=== PATIENT | female | born 1995 | race Hispanic/Latino ===

== ENCOUNTER 2023-10-23 05:35 | Observation (INO) | payer OTHER ==
[2023-10-23] VITALS (26 sets, daily range): BP systolic 108–148; BP diastolic 46–88; PULSE 55–92; RESP 13–18; O2SAT 100
[~2023-10-23] VITALS: Ht 162.6 cm; Wt 57.2 kg
[2023-10-23 06:07] LABS: APPEARANCE,URINE CLOUDY (CLEAR); BILIRUBIN,URINE NEGATIVE (NEGATIVE); COLOR,URINE YELLOW (YELLOW); GLUCOSE, URINE (UA) NEGATIVE (NEGATIVE); KETONES,URINE 10 mg/dL (NEGATIVE); LEUKOCYTE ESTERASE ,URINE 75 Leu/uL (NEGATIVE); NITRATE,URINE NEGATIVE (NEGATIVE); OCCULT BLOOD,URINE MODERATE (NEGATIVE); PROTEIN,URINE 10 mg/dL (NEGATIVE); UROBILINOGEN,URINE 0.2 mg/dL (0.2-1.0)
[2023-10-23 06:09] LABS: ADD UA MICROSCOPIC YES
[2023-10-23 06:14] LABS: BACTERIA,URINE RARE /HPF (None Seen); MUCUS,URINE RARE LPF (None Seen); SQUAMOUS EPITHELIAL CELL,UR MANY /HPF (0-2)
[2023-10-23] MEDS: ONDANSETRON 4MG INJ IVP ONE (06:18)
[2023-10-23] MEDS: 0.9%NACL 1000ML 1,000 ML IV ONE (06:18)
[2023-10-23] MEDS: MORPHINE 4 MG SYG IVP ONE ×3 (06:18→07:12)
[2023-10-23 06:28] LABS: BASOPHILS # (AUTO) 0.06 K/uL (0.00-0.20); BASOPHILS % (AUTO) 0.5 % (0.0-5.0); EOSINOPHILS # (AUTO) 0.13 K/uL (0.00-0.70); EOSINOPHILS % (AUTO) 1.1 % (0.0-8.0); HEMATOCRIT 40.9 % (36-48); IMMATURE GRANULOCYTE ABSOLUTE 0.06 K/uL (0-1); LYMPHOCYTES # (AUTO) 3.4 K/uL (1.0-4.8); LYMPHOCYTES % (AUTO) 28.9 % (21.0-51.0); MEAN CORPUSCULAR HEMOGLOBIN 29.3 pg (27.0-33.0); MEAN CORPUSCULAR HGB CONC 34.5 g/dL (32.0-36.0); MONOCYTES # (AUTO) 0.6 K/uL (0.1-1.0); MONOCYTES % (AUTO) 5.2 % (3.0-13.0); NEUTROPHILS # (AUTO) 7.5 K/uL (1.8-7.7); NEUTROPHILS % (AUTO) 63.8 % (40.0-77.0); PLATELET COUNT (AUTO) 262 K/uL (130-400); RED BLOOD CELL COUNT(AUTO) 4.81 MIL/uL (4.00-5.50); RED CELL DISTRIBUTION WIDTH 12.7 % (11.0-15.5); WHITE BLOOD COUNT (AUTO) 11.8 K/uL (4.8-10.8)
[2023-10-23 06:46] LABS: ALBUMIN 3.4 g/dL (3.5-5.0); BILIRUBIN,TOTAL 0.6 mg/dL (0.2-1.0); CREATININE 0.7 mg/dL (0.5-1.5); POTASSIUM 3.7 mmol/L (3.5-5.1); TOTAL PROTEIN, SERUM 6.8 g/dL (6.0-8.3)
[2023-10-23] MEDS ORDERED: BUPIVACAINE/PF 0.25% 30ML VIAL IJ ONE (10:02)
[2023-10-23] MEDS: LACTATED RINGERS 1000ML 1,000 ML IV ONE (10:11)
[2023-10-23] MEDS: CEFAZOLIN SODIUM 2 GM VIAL ONE (11:13)
[2023-10-23] MEDS ORDERED: MIDAZOLAM HCL 1 MG/ML 2ML VIAL ONE (11:15)
[2023-10-23] MEDS ORDERED: LIDOCAINE PF 100MG/5ML (2%) SYRINGE 5ML ONE (11:22)
[2023-10-23] MEDS ORDERED: SUCCINYLCHOLINE CHLORIDE 20 MG/ML 10 ML VIAL ONE (11:22)
[2023-10-23] MEDS ORDERED: PROPOFOL 10 MG/ML 20ML VIAL IV ONE (11:22)
[2023-10-23] MEDS ORDERED: ROCURONIUM BROMIDE 10MG/1ML 5ML VL ONE (11:23)
[2023-10-23] MEDS ORDERED: FENTANYL CITRATE PF 50 MCG/1 ML 2ML VIAL ONE (11:23)
[2023-10-23] MEDS: CEFAZOLIN SODIUM 2 GM VIAL IVPB ONE (11:40)
[2023-10-23] MEDS: BUPIVACAINE/PF 0.25% 30ML VIAL IJ ONE (12:05)
[2023-10-23] MEDS ORDERED: GLYCOPYRROLATE 0.2 MG/ML 5 ML VIAL ONE (12:38)
[2023-10-23] MEDS ORDERED: NEOSTIGMINE METHYLSULFATE 1MG/ML IV ONE (12:38)
[2023-10-23] MEDS ORDERED: 0.9%NACL 10ML VIAL IVP PRN (13:00)
[2023-10-23] MEDS ORDERED: DEXTROSE 5 %-0.45 % NACL 1,000 ML IV PRN (13:00)
[2023-10-23] MEDS: ONDANSETRON 4MG INJ ONE (13:17)
[2023-10-23] MEDS: MEPERIDINE-PF 25 MG/ML SYG ONE ×2 (13:18→13:23)
[2023-10-23] MEDS: PROMETHAZINE HCL 25 MG/ML 1ML AMPULE IM PRN (14:08)
[2023-10-23] MEDS: MEPERIDINE-PF 75 MG/ML SYG IM PRN (14:09)
[2023-10-23] MEDS: CALDOLOR 800MG+NS 250ML 250 ML IV SCH (20:52)
[2023-10-24] VITALS (7 sets, daily range): BP systolic 110–122; BP diastolic 57–72; PULSE 71–94; RESP 16–20; O2SAT 97
[2023-10-24 06:56] LABS: HEMATOCRIT 38.4 % (36-48); MEAN CORPUSCULAR HEMOGLOBIN 29.1 pg (27.0-33.0); MEAN CORPUSCULAR HGB CONC 32.6 g/dL (32.0-36.0); MEAN CORPUSCULAR VOLUME 89.3 fL (79-99); RED BLOOD CELL COUNT(AUTO) 4.3 MIL/uL (4.00-5.50); RED CELL DISTRIBUTION WIDTH 12.9 % (11.0-15.5); WHITE BLOOD COUNT (AUTO) 13.7 K/uL (4.8-10.8)
[2023-10-24] MEDS ORDERED: ACETAMINOPHEN WITH CODEINE 1 TAB TAB PO PRN (12:00)
[2023-10-24] MEDS: IBUPROFEN 800 MG TAB PO SCH (12:18)
[2023-10-24] MEDS: HYDROCODONE/ACETAMINOPHEN 5/325 MG TAB PO PRN (12:18)
[2023-10-24] MEDS: SIMETHICONE 80 MG TAB.CHEW PO PRN (13:27)
[2023-10-24] MEDS ORDERED: CALDOLOR 800MG+NS 250ML 250 ML IV ONE (13:30)
[2023-10-24] MEDS: MEPERIDINE-PF 50 MG/ML SYG IVP ONE (14:08)
[2023-10-24] MEDS: PROMETHAZINE HCL 25 MG/ML 1ML AMPULE IM ONE (14:14)
[2023-10-24] MEDS: CALDOLOR 800MG+NS 250ML 250 ML IV ONE (22:05)
[2023-10-25 03:40] VITALS: BP 121/67; PULSE 78; RESP 18
[2023-10-25 08:00] VITALS: BP 115/57; PULSE 85; RESP 16
[2023-10-25] MEDS: BISACODYL 10 MG SUPP.RECT RC PRN (08:43)
[2023-10-25 11:29] VITALS: BP 116/63; PULSE 86; RESP 20
[2023-10-25] MEDS ORDERED: DOCU-116 PO (13:07)
[2023-10-25] MEDS ORDERED: IBUP-2077 PO (13:08)
[2023-10-25] MEDS ORDERED: ACET-2079 PO (13:09)
== END 2023-10-25 14:30 | disposition home or self-care (01) ==
LOC: EDH 05:35 → WSH 09:30
PROVIDERS: ADMIT Obstetrics & Gynecology; ATTEND Obstetrics & Gynecology
DX: N83.292 Other ovarian cyst, left side (principal); N83.512 Torsion of left ovary and ovarian pedicle; R10.32 Left lower quadrant pain; R10.2 Pelvic and perineal pain
CPT/HCPCS: 58925; 96376; 96372 ×2; 96365; 96366 ×2; 96375 ×2; 99285; 80053; 84702; 83690; 85025; 87088; 81001; 36415 ×2; 76705; 85027; G0378 ×49; A4510; J7030 ×2; J7120 ×2; A4351; A4344; C1765; J3010; J0330; J0665 ×2; J2550 ×3; J3490 ×2; J2001; J2250; J2704; J2405 ×2; J2270 ×2; J2710; J2175 ×5; J1741 ×3; J0690 ×2; A4930; A4649 ×2; C1769; A4223; A4222; A4216